=== PATIENT | female | born 1955 | race African-American/Black ===

== ENCOUNTER 2017-01-01 06:08 | Day surgery (SDC) | payer OTHER ==
[2017-01-01 06:51] VITALS: BMI 33.4
[2017-01-01] MEDS ORDERED: BUPIVACAINE HCL/PF 2.5 MG/ML - 30 ML VIAL IJ ONE (07:21)
[2017-01-01] MEDS ORDERED: LIDOCAINE 1%/EPI 1:100000 (20 ML MULTI DOSE VIAL) ONE (07:22)
[2017-01-01] MEDS ORDERED: LIDOCAINE HCL/PF 2% SDV 5ML VIAL ONE (07:35)
[2017-01-01] MEDS ORDERED: MIDAZOLAM HCL 2 MG/2 ML SINGLE DOSE VIAL ONE (07:36)
[2017-01-01] MEDS ORDERED: PROPOFOL 20 ML ONE (07:36)
[2017-01-01] MEDS ORDERED: ceFAZolin SODIUM 1 GM VIAL ONE (07:59)
[2017-01-01] MEDS ORDERED: DEXAMETHASONE SOD PHOSPHATE 4 MG/1 ML VIAL ONE (08:08)
[2017-01-01] MEDS ORDERED: KETOROLAC TROMETHAMINE 30 MG/1 ML VIAL ONE (08:08)
[2017-01-01] MEDS ORDERED: ONDANSETRON 4 MG/2 ML VIAL IVPUSH PRN (08:10)
[2017-01-01] MEDS ORDERED: LACTATED RINGERS SOLUTION 1,000 ML IV SCH (08:15)
[2017-01-01] MEDS ORDERED: BUPIVACAINE HCL/PF 0.25% (2.5MG/ML) 10 ML VIAL IJ ONE (08:18)
[2017-01-01] MEDS ORDERED: SUCCINYLCHOLINE CHLORIDE 200 MG/10 ML VIAL ONE (08:36)
[2017-01-01] MEDS ORDERED: ONDANSETRON 4 MG/2 ML VIAL IVPUSH ONE (09:05)
--- NOTE | 2017-01-01 09:22 | OP ---
DATE OF OPERATION: 01/01/2017 PREOPERATIVE DIAGNOSIS: Right knee mass. POSTOPERATIVE DIAGNOSIS: Right knee mass. PROCEDURE: Right knee mass excision. SURGEON: Rashi Balderas MD ANESTHESIA: General. POSTOPERATIVE CONDITION: Stable. COMPLICATIONS: None. SPECIMENS: Right knee mass x1. TOURNIQUET TIME: 32 minutes. INDICATIONS: This is a pleasant woman who has a slowly enlarging mass in the right knee. She had MRI demonstrating what appeared to be a benign lesion. Treatment options including nonoperative versus operative care were discussed. Operative risks were reviewed in detail including bleeding, infection, neurovascular injury, need for further surgery, postoperative pain and stiffness, possibility of a malignant mass which could require further excision or amputation. We discussed medical risks such as heart attack, stroke, DVT, PE, and . I addressed all the patient's questions. She voiced understanding and elected to proceed. DESCRIPTION OF PROCEDURE: The patient was brought to the operating room where general anesthesia was administered. The right lower extremity was then prepped and draped in the usual sterile fashion. A preoperative dose of antibiotics was given, and the usual timeout procedure was performed. The knee mass was now palpated. It was just lateral to the patellar tendon and patella. Incision was planned out over the midline. The limb was then elevated, and the tourniquet was inflated to 275 mmHg. The incision was now carried out through skin to subcutaneous tissue. Blunt spreading was carried down to the layer of the capsule. The mass was intraarticular. The capsule was then split in line with the limb. The mass had some loose attachments to the surrounding synovial tissue. Utilizing finger dissection as well as blunt dissection, the mass was freed from the surrounding synovium. The mass was white, shiny, and smooth in appearance. The mass dimensions were 3 cm x 3 cm x 7 cm. The synovium was palpated, and some smaller, [id number]-centimeter prominences were noted. These were excised as well. At this point, there were no further palpable masses in the synovium. The knee joint was copiously irrigated. The capsule was closed using 0 Vicryl. The subcutaneous tissue was approximated using 3-0 Vicryl. The skin was closed using 3-0 nylon. The tourniquet was let down after 32 minutes. The patient was extubated and transferred to recovery room in stable condition. RASHI BALDERAS M.D. [id number]
[2017-01-01 10:14] VITALS: TEMP 97.6
[2017-01-01] MEDS: oxyCODONE HCL 5 MG TABLET PO PRN ×2 (10:35→11:25)
[2017-01-01] MEDS ORDERED: oxyCODONE HCL 5 MG TABLET ONE (11:23)
[2017-01-01 11:37] VITALS: PULSE 77
[2017-01-01 11:57] VITALS: BP 135/75
--- NOTE | 2017-01-02 13:46 | PATH ---
Surgical Pathology Report Patient Name: BONNIE SELF [facility]. Rec. #: [id number] /Age/Gender: 1955 (Age: 61) / F Account: [id number] Location: COUNT INCLUDES THE [facility] AMBULATORY Taken: 01/01/2017 Received: 01/01/2017 Reported: 01/02/2017 Physicians: Rashi Meléndez M.D. 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 Comment: Recommend correlation with clinical and radiologic findings and follow up as clinically indicated. Electronically Signed Kingsley Warren M.D. Gross Description Received in formalin labeled "right knee mass," is a 7.0 x 6.3 x 3.0 cm veras, firm mass. Sectioning reveals heterogeneous veras-red and yellow parenchyma with foci of cartilage, bone and soft tissue. Also received within the same container is a 4.5 x 4.0 x 1.2 cm aggregate of soft tissue fragments. Coat Presser sections are submitted in 6 cassettes as follows: [id number] from mass, following decalcification; 6-separately received soft tissue fragments. /01/01/2017 saudi01/01/2017
== END 2017-01-01 12:00 | disposition home or self-care (01) ==
LOC: FASU 06:08
PROVIDERS: ATTEND Orthopaedic Surgery Sports Medicine
PROC: 0SBC0ZX Excision of Right Knee Joint, Open Approach, Diagnostic (ICD-10-PCS; principal; 2017-01-01 08:02)
DX: M25.861 Other specified joint disorders, right knee (principal)
CPT/HCPCS: 88307-TC; 88311-TC; 94760